=== PATIENT | female | born 1980 | race Caucasian/White ===

== ENCOUNTER → 2019-06-07 | Outpatient (CLI) | payer BC ==
[~2019-06-07] MED LIST: NO HOME MEDICATIONS
== END ==
LOC: MC.RAD 08:15
DX: N63.11 Unspecified lump in the right breast, upper outer quadrant (principal); R59.0 Localized enlarged lymph nodes
CPT/HCPCS: G0279

== ENCOUNTER → 2019-06-13 | Outpatient (CLI) | payer BC | LOC: MC.RAD 09:46 | DX: N63.11 Unspecified lump in the right breast, upper outer quadrant (principal); R59.0 Localized enlarged lymph nodes; Z98.82 Breast implant status ==

== ENCOUNTER 2019-10-12 10:09 | Inpatient (IN) | payer BC ==
[~2019-10-12] VITALS: Ht 152.4 cm; Wt 84.6 kg
[2019-10-12 11:23] LABS: COLLECTION METHOD CLEAN CATCH
[2019-10-12 11:28] LABS: PROTHROMBIN TIME 11.7 SECONDS (9.7-12.8)
[2019-10-12 11:32] LABS: MUCOUS Present /lpf; PH 7 (5-8); SQUAMOUS EPITHELIAL 0-2 /hpf; URINE APPEARANCE Hazy; URINE BACTERIA None Seen /hpf; URINE BILIRUBIN Negative (NEGATIVE); URINE BLOOD Negative (NEGATIVE); URINE COLOR Yellow; URINE GLUCOSE Negative (NEGATIVE); URINE KETONE Negative (NEGATIVE); URINE LEUKOCYTE ESTERASE Negative (NEGATIVE); URINE NITRATE Negative (NEGATIVE); URINE PROTEIN(semi-quant) 1+ (NEGATIVE); URINE UROBILINOGEN >=4.0 mg/dL (NEGATIVE)
[2019-10-12] MEDS ORDERED: CELEXA10 MG PO (11:33)
[2019-10-12] MEDS ORDERED: DECADRON 4MG TAB4 MG PO (11:34)
[2019-10-12 11:36] LABS: HEMOGLOBIN 10.2 g/dl (12.5-16.0); MEAN CELL VOLUME 94 fl (80.0-100.0); MEAN CORPUSCULAR HEMOGLOBIN 31 pg (27.0-31.0); MEAN CORPUSCULAR HGB CONC 33 g/dl (33.0-37.0); MEAN PLATELET VOLUME 10.4 fl (7.4-10.4); PLATELET COUNT 200 K/mm3 (130-400); RED BLOOD COUNT 3.27 M/mm3 (4.10-5.30); REDCELL DISTRIBUTION WIDTH-CV 13.2 % (11.5-14.5)
[2019-10-12 11:41] LABS: HEMATOCRIT 30.8 % (37.0-47.0)
[2019-10-12 11:42] LABS: STREP SCREEN NEGATIVE
[2019-10-12 12:07] LABS: ALANINE AMINOTRANSFERASE 115 U/L (9-52); ALKALINE PHOSPHATASE 70 U/L (50-136); ANION GAP 11 mmol/L (7-16); AST,SGOT 46 U/L (15-37); BILIRUBIN,TOTAL 0.4 mg/dL (0.0-1.0); BLOOD UREA NITROGEN 12 mg/dL (7-17); CALCIUM 9.1 mg/dL (8.4-10.2); CARBON DIOXIDE 27 mmol/L (22-30); CHLORIDE 99 mmol/L (98-107); CREATININE, serum 0.62 (0.52-1.25); GLUCOSE 144 mg/dL (74-106); LIPASE 10 U/L (23-300); SODIUM 136 mmol/L (137-145); TOTAL PROTEIN 7.1 gm/dL (6.4-8.2)
[2019-10-12 12:13] LABS: BAND 6 % (0-10); EOSINOPHIL 2 % (0-4); LYMPHOCYTE 78 % (20.0-51.0); METAMYELOCYTE 2 % (0-0); MYELOCYTE 3 % (0-0); NEUTROPHILS 3 % (42.0-75.2); NUCLEATED RED BLOOD CELL 1 (0-6); PLATELET ESTIMATE NORMAL (NORMAL)
[2019-10-12 12:14] LABS: POLYCHROMASIA 1+
[2019-10-12 12:20] LABS: TROPONIN-I < 0.012 ng/mL (0.000-0.035)
[2019-10-12 12:32] LABS: C-REACTIVE PROTEIN 15.1 mg/dL (0.0-0.9)
[2019-10-12 14:41] VITALS: BP 101/54; PULSE 105; TEMP 99.1
--- NOTE | 2019-10-12 14:41 | NUR ---
Vancomycin Initial Dosing Pharmacy Note Ordering provider: Hayden Alejandro MD Indication/duration: Neutropenic fever, 7 days Relevant comorbidities: Breast CA LABS: SCr 0.62, CrCl~101, GFR 109 Recommendation: Will continue Vancomycin 1.25 gm IV q8h. Pharmacy will continue to montior and check a Vancomycin trough on 10/14/19. Loading dose: 1 grams Maintenance dose: 1.25 grams every 8 hours Trough goal: 15-20 ug/mL
--- NOTE | 2019-10-12 15:15 | NUR ---
Pt up to room 305 w/ at bedside. Pt A&O, independent in room. LS cta, breathing is even and unlabored, on room air. HR slightly/occasionally tachy, regular rhythm. Pulses strong bilaterally. BSx4. RH IV w/ NS @ 100ml/hr running w/o complications. Pt currently not running fever, received motrin and tylenol in ER. Pt denies pain, dizziness, SOB, N/V/D. Pt states she has had some episodes of diarrhea prior to coming to ER. Received last chemo treatment on 10/05/19. Pt does have left side port that she did not want accessed. Pt placed on tele. Pt placed on Reverse isolation precautions. POC discussed w/ patient who verbalizes understanding. All questions answered. No further needs at this time.
[2019-10-12 16:20] VITALS: BP 103/54; PULSE 105; TEMP 99.1
[2019-10-12 19:09] VITALS: BP 112/63; PULSE 97; TEMP 98.5
--- NOTE | 2019-10-12 20:23 | NUR ---
Contacted Dr. Andino to obtain order for Tylenol in case patient develops fever. Orders received and placed in system.
--- NOTE | 2019-10-12 21:00 | NUR ---
Sitting in bed with eyes open. Denies pain. Has dry, hacky nonproductive cough. Lungs clear to auscultation. Patient declines needs at this time.
[2019-10-12 23:40] VITALS: BP 105/60; PULSE 88; TEMP 98.1
--- NOTE | 2019-10-12 23:48 | NUR ---
Lying in bed in supine position with eyes open. Denies pain or shortness of breath. Continues to have dry nonproductive cough. Patient explains that she feels a little better than she did when she came in. Patient denies any needs or concerns at this time.
--- NOTE | 2019-10-13 01:27 | NUR ---
Lying in bed on left side with eyes closed. Respirations even and unlabored. No signs or symptoms of discomfort noted at this time.
[2019-10-13 04:00] VITALS: BP 101/72; PULSE 103; TEMP 100
--- NOTE | 2019-10-13 04:09 | NUR ---
Lying in bed with eyes closed. Opens eyes when enter room. Temp 100.0 at this time. Administered Tylenol as prescribed. Patient says other than her cough she feels okay. Denies further needs at this time.
[2019-10-13 05:48] VITALS: TEMP 98.3
[2019-10-13 07:12] LABS: MEAN CELL VOLUME 95 fl (80.0-100.0); MEAN CORPUSCULAR HGB CONC 32 g/dl (33.0-37.0); MEAN PLATELET VOLUME 10.6 fl (7.4-10.4); PLATELET COUNT 177 K/mm3 (130-400); RED BLOOD COUNT 2.85 M/mm3 (4.10-5.30); REDCELL DISTRIBUTION WIDTH-CV 13.5 % (11.5-14.5)
[2019-10-13 07:22] VITALS: BP 103/59; PULSE 82; TEMP 98.1
[2019-10-13 07:25] LABS: HEMATOCRIT 27.1 % (37.0-47.0); HEMOGLOBIN 8.7 g/dl (12.5-16.0); MEAN CORPUSCULAR HEMOGLOBIN 31 pg (27.0-31.0)
--- NOTE | 2019-10-13 09:15 | NUR ---
Assessment complete. Patient sitting up in bed watching tv. She states she feels better today than she has the past few days. No complaints of pain or discomfort were stated. VSS. IV site CD&I. No other needs were expressed from patient. Call light is within reach.
[2019-10-13 09:39] LABS: BAND 48 % (0-10); EOSINOPHIL 1 % (0-4); LYMPHOCYTE 17 % (20.0-51.0); METAMYELOCYTE 2 % (0-0); NEUTROPHILS 10 % (42.0-75.2); NUCLEATED RED BLOOD CELL 2 (0-6); PLATELET ESTIMATE NORMAL (NORMAL); POLYCHROMASIA 1+
[2019-10-13 09:40] LABS: ANISOCYTOSIS 1+
[2019-10-13 12:41] VITALS: BP 107/62; PULSE 93; TEMP 98.2
--- NOTE | 2019-10-13 13:52 | NUR ---
Plan: To return home with sean as care support [phone]. Patient also reported her as her EMR. Patient denied having a DPOA, and accept the form that was left for her. Patient resides in [facility] with her and children. Assess: SW met with patient at her bedside. Patient denied the use of DME, and indicated that her PCP was Dr. Brown. The patient denied having any upcoming appointments. Patient reports that she gets her medications from [facility] with no complications. PAtient declined a need for HHS at this time. Plan: No additional concerns addressed. SM was educated on community resources.
[2019-10-13 16:06] VITALS: BP 106/62; PULSE 98; TEMP 99.2
--- NOTE | 2019-10-13 16:52 | NUR ---
Patient has had a good day. She stated that she is feelig better today. She has had no complaints or concerns throughout the day. States her nagging cough is the only thing really bothering her. Patient is sitting up watching tv. No further needs were expressed. Call light is within reach.
[2019-10-13 20:50] VITALS: BP 108/60; PULSE 100; TEMP 99
[2019-10-14] VITALS (7 sets, daily range): BP systolic 101–111; BP diastolic 55–65; PULSE 69–88; TEMP 97.7–98.5
--- NOTE | 2019-10-14 05:15 | NUR ---
PT RESTING QUIETLY. AFEBRILE. PT HAD HEADACHE EARLY IN SHIFT BUT RESTING QUIETLY NOW.
--- NOTE | 2019-10-14 05:29 | NUR ---
PT IN BED. NO c/o N/V. PT HAS BEEN AFEBRILE. PT RECEIVED TYLENOL FOR HEADACHE EARLY IN SHIFT.
--- NOTE | 2019-10-14 08:26 | NUR ---
Pt assessment complete. Pt sitting up in bed upon entry, she is A/O x4. Her breathing is even and unlabored on RA. Pt denies SOB. Pt reports feeling "much better", continues to have cough. Pt denies any pain. No N/V. Requesting a shower this morning. Pt has no other concerns at this time. Call light within reach. Isolation precautions in place.
[2019-10-14 08:30] LABS: MEAN CELL VOLUME 96 fl (80.0-100.0); MEAN CORPUSCULAR HGB CONC 32 g/dl (33.0-37.0); MEAN PLATELET VOLUME 10.7 fl (7.4-10.4); PLATELET COUNT 212 K/mm3 (130-400); RED BLOOD COUNT 3.06 M/mm3 (4.10-5.30)
[2019-10-14 08:40] LABS: HEMATOCRIT 29.5 % (37.0-47.0); HEMOGLOBIN 9.4 g/dl (12.5-16.0); MEAN CORPUSCULAR HEMOGLOBIN 31 pg (27.0-31.0)
[2019-10-14 09:58] LABS: BAND 59 % (0-10); LYMPHOCYTE 7 % (20.0-51.0); METAMYELOCYTE 4 % (0-0); MYELOCYTE 7 % (0-0); NEUTROPHILS 13 % (42.0-75.2); NUCLEATED RED BLOOD CELL 2 (0-6); PLATELET ESTIMATE NORMAL (NORMAL)
[2019-10-14 11:53] LABS: CREATININE, serum 0.63 (0.52-1.25)
--- NOTE | 2019-10-14 18:17 | NUR ---
Pt had uneventful day. Feeling better overall, has a more dry cough. Afebrile through the day. VSS. No needs at this time. Call light within reach.
[2019-10-15 04:16] VITALS: BP 100/60; PULSE 83; TEMP 98.5
--- NOTE | 2019-10-15 05:48 | NUR ---
RESTING QUIETLY. NO c/o PAIN. PT AFEBRILE.
[2019-10-15 06:36] LABS: MEAN CELL VOLUME 97 fl (80.0-100.0); MEAN CORPUSCULAR HGB CONC 32 g/dl (33.0-37.0); MEAN PLATELET VOLUME 10.6 fl (7.4-10.4); PLATELET COUNT 193 K/mm3 (130-400); RED BLOOD COUNT 2.92 M/mm3 (4.10-5.30); REDCELL DISTRIBUTION WIDTH-CV 14.5 % (11.5-14.5)
[2019-10-15 06:40] LABS: HEMATOCRIT 28.4 % (37.0-47.0); HEMOGLOBIN 9.1 g/dl (12.5-16.0); MEAN CORPUSCULAR HEMOGLOBIN 31 pg (27.0-31.0)
[2019-10-15 06:46] LABS: CREATININE, serum 0.68 (0.52-1.25); POTASSIUM 3.9 mmol/L (3.4-5.0)
[2019-10-15 07:26] LABS: BAND 36 % (0-10); LYMPHOCYTE 14 % (20.0-51.0); METAMYELOCYTE 4 % (0-0); MYELOCYTE 3 % (0-0); NEUTROPHILS 41 % (42.0-75.2); NUCLEATED RED BLOOD CELL 1 (0-6); PLATELET ESTIMATE NORMAL (NORMAL)
[2019-10-15 09:47] LABS: PATHOLOGY DIFF REVIEW OK
[2019-10-15 09:51] VITALS: BP 106/57; PULSE 99; TEMP 98.2
--- NOTE | 2019-10-15 10:12 | NUR ---
Initial visit; Patient thanked Casting Repairer for looking in on her and offering spiritual care and God's blessings.
--- NOTE | 2019-10-15 11:04 | NUR ---
Pt assessment complete. Pt is sitting on the bench awaiting discharge. She is A/O x4. No complaints of pain or SOB. No N/V. Feeling better overall. Will proceed with discharge at this time.
--- NOTE | 2019-10-15 11:27 | NUR ---
Discharge instructions and paperwork reviewed with patient. All questions answered at this time. IV to Rhand dc'd catheter tip intact. Pt walked out of facility at this time.
== END 2019-10-15 11:27 | disposition home or self-care (01) | DRG 810 ==
LOC: COL.ER 10:09 → MEDICAL 12:17
PROVIDERS: Emergency Medicine; Internal Medicine; ADMIT Student in an Organized Health Care Education/Training Program
DX: D70.9 Neutropenia, unspecified (principal); R50.81 Fever presenting with conditions classified elsewhere; C50.919 Malignant neoplasm of unspecified site of unspecified female breast; Z92.21 Personal history of antineoplastic chemotherapy; Z87.891 Personal history of nicotine dependence
CPT/HCPCS: 99222-AI; 99232-AI; 99239; J0692; J1447; J1650; J2543; J3370; J7030; J7050